=== PATIENT | male | born 1945 | race Caucasian/White ===

== ENCOUNTER 2016-05-02 13:50 | Day surgery (SDC) | payer MEDICARE, BC ==
[2016-04-30 12:56] LABS: BASOPHILS 0.2 %; BASOPHILS ABSOLUTE 0.02 10/3/uL (0.0-0.16); EOSINOPHILS 1.3 %; EOSINOPHILS ABSOLUTE 0.11 10/3/uL (0.0-0.53); HEMOGLOBIN 14.1 g/dL (13.6-17.8); IMMATURE GRANULOCYTES 0.1 %; IMMATURE GRANULOCYTES ABSOLUTE 0.01 10/3/uL (0.0-0.11); LYMPHOCYTES 18.1 %; LYMPHOCYTES ABSOLUTE 1.48 10/3/uL (0.67-4.30); MANUAL DIFF NO %; MEAN CORPUS HGB CONC 34.4 g/dL (32.0-36.0); MEAN CORPUSCULAR HEMOGLOB 31.7 pg (26.0-34.0); MEAN CORPUSCULAR VOLUME 92.1 fL (80-100); MEAN PLATELET VOLUME 9.6 fL (9.2-13.0); MONOCYTES 13.6 %; MONOCYTES ABSOLUTE 1.11 10/3/uL (0.21-1.20); NEUTROPHILS 66.7 %; NEUTROPHILS ABSOLUTE 5.44 10/3/uL (2.02-8.40); PLATELET COUNT 177 10/3/uL (150-400); RED CELL COUNT 4.45 10/6/uL (4.7-6.1); WHITE BLOOD CELLS 8.2 10/3/uL (4.5-10.5)
[2016-04-30 13:08] LABS: CALCIUM, SERUM 8.4 MG/DL (8.5-10.4); CHLORIDE, SERUM 106 MMOL/L (96-112); CO2 (CARBON DIOXIDE) 28 MMOL/L (24-34); POTASSIUM, SERUM 4.3 MMOL/L (3.5-5.3); SODIUM, SERUM 141 MMOL/L (135-148)
[2016-04-30 13:09] LABS: BUN (BLOOD UREA NITROGEN) 35 MG/DL (6-23); CREATININE 1.85 MG/DL (0.70-1.30); GFR AFRICAN AMERICAN 42 ML/MIN (>=60); GFR NON AFRICAN AMERICAN 37 ML/MIN (>=60); GLUCOSE, SERUM 164 MG/DL (60-99)
[2016-04-30 13:43] LABS: ASCORBIC ACID (UR NOT ORDER) NEG (NEG); BILIRUBIN, URINE NEGATIVE (NEG); KETONE, URINE NEGATIVE (NEG); LEUKOCYTE ESTERASE(NOT OR NEG (NEG); WBC (NOT ORDERED) (RFLEX) 2 (0-5)
--- NOTE | ~2016-05-02 | OP ---
Record Of Operation [facility] [address] [facility] [place] [address] NAME: LAURE PURCELL : 49 STATUS : [facility]#: [id number] AGE: 70 ADM/REG DATE : 05/02/16 MR#: [id number] REPORT SERV DATE: 05/02/16 DICTATED BY: NIC LUCIANO DATE: 05/02/16 REPORT STATUS : Draft TRANSCRIBED BY: MODL DATE: 05/02/16 DATE OF PROCEDURE: 05/02/2016 PREOPERATIVE DIAGNOSIS: Left distal ureteral stone. POSTOPERATIVE DIAGNOSIS: Left distal ureteral stone. PROCEDURE PERFORMED: ESWL. SURGEON: Nic Luciano M.D. ANESTHESIA: MAC. HISTORY: This is a 70-year-old white male with recurrent stone problems, who currently had a 4 mm distal left ureteral stone. We are planning in situ ESWL. Risks of infection, bleeding, failure, need for further surgery have been discussed. DESCRIPTION OF PROCEDURE: The patient was taken to the lithotripsy suite and was positioned supine on the lithotripsy table. He underwent MAC. There was a calcification corresponding to the distal ureteral stone, which was visualized fluoroscopically. This stone was treated with 4000 shocks up to the power level of 9. It was difficult to determine the degree of fragmentation of the stone. He tolerated the procedure very well. There were no complications. At the conclusion of the procedure, he was taken to recovery in stable condition. MONICA/POLO Nic Luciano M.D. / [id number] CC: Bibi Bella M.D.
[~2016-05-02 13:50] MED LIST: ANUCORT-HC25 MG RE; ASAB PO; B121000P IM; CULTURELLE PO; DIOVAN320 MG PO; FLOMAX4 PO; FLORASTOR250 MG PO; MEP50TAB PO; PEP20 PO; PERCOCET1 TA4 PO; PR25 PO; PRAVAC PO; PROBIOTICS; T PO; VANCOCIN HCL125 MG PO; VITAMIN B-121000 MC1 SL; Z100 PO; ZETIA PO
== END 2016-05-02 18:14 | disposition home or self-care (01) ==
LOC: SDC 13:50
PROVIDERS: Urology
PROC: 0TF7XZZ Fragmentation in Left Ureter, External Approach (ICD-10-PCS; principal; 2016-05-02 16:00)
DX: N20.1 Calculus of ureter (principal); N20.0 Calculus of kidney; I10 Essential (primary) hypertension; K21.9 Gastro-esophageal reflux disease without esophagitis; G47.33 Obstructive sleep apnea (adult) (pediatric); Z99.89 Dependence on other enabling machines and devices; Z88.8 Allergy status to other drugs, medicaments and biological substances
CPT/HCPCS: 50590; 74000; 80048; 81001; 85025; 93005; J2405; J3010